=== PATIENT | female | born 1960 | race Caucasian/White ===

== ENCOUNTER 2016-09-24 18:50 | Inpatient (IN) | payer BC ==
--- NOTE | ~2016-09-24 | HP ---
Unit #: [id number] #: [id number] Patient: JAEL FLORES [id number] [address] [place], [place] [address] [id number] I MR#: [id number] NAME: JAEL FLORES. ROOM: 332 Age: 56 Sex: F Admission Date: 09/25/2016 : 1960 Attending Physician: Namrata Doss M.D. Primary Care Physician: No Primary Care Physician HISTORY AND PHYSICAL CHIEF COMPLAINT Nausea, vomiting and diarrhea. HISTORY OF PRESENT ILLNESS This is a 56-year-old female with a history of hypertension, diabetes, acid reflux, history of thrombocytopenia in 2014. She presented to the emergency room with a chief complaint of having diarrhea for the last three or four days and also she said she vomited times two. She has been very nauseous. On workup in the emergency room she was found to have a white count of 34,000, BUN 30, creatinine 2 and sodium 134. She underwent CT scan which is pending at this time. She eventually was admitted. Urine shows urinary tract infection. She denies chest pain. She denies fever. She denies headache or any other complaint. PAST MEDICAL HISTORY 1. History of hypertension. 2. Diabetes. 3. History of thrombocytopenia in 2014. 4. History of gastroesophageal reflux disease. PAST SURGICAL HISTORY She denies any surgical intervention. SOCIAL HISTORY She does not smoke. Does not drink alcohol. No illicit drug use. FAMILY HISTORY Diabetes in the family. HOME MEDICATIONS 1. Prilosec 20 mg daily. 2. Glucophage b.i.d. 3. Januvia 100 mg before breakfast. 4. Amaryl 400 mg b.i.d. 5. Lisinopril 5 mg daily. 6. Ferrous sulfate 325 mg daily. REVIEW OF SYSTEMS Negative except as per history of present illness. PHYSICAL EXAMINATION GENERAL: Middle-aged female lying in the bed comfortably. Currently not in any distress. She is alert, awake and oriented times three. VITALS: Temperature 98.2, heart rate 109, respiratory rate 16, blood Unit #: [id number] #: [id number] Patient: JAEL FLORES pressure 100/60. HEENT: Pupils equal and reactive to light and accommodation. Head is normocephalic, atraumatic. NECK: Supple. No jugular venous distension. No lymphadenopathy. No thyromegaly. LUNGS: Clear to auscultation bilaterally. No rhonchi. No wheezing. HEART: S1 and S2. Regular rate and rhythm. ABDOMEN: Soft, nondistended. Bowel sounds positive. No guarding. No rigidity. EXTREMITIES: Inspection normal. No cyanosis, clubbing or edema. NEUROLOGIC: No focal neurologic deficits. Cranial nerves II through XII grossly intact. PSYCHIATRIC: She has normal affect, normal mood. Alert and oriented times three. SKIN: No rash. DIAGNOSTIC STUDIES IMAGING: CT scan is pending. LABORATORY: Urine shows cloudy appearance and WBCs 10-25, positive LE. White blood cell count 34,000, hemoglobin 13, hematocrit 42, platelets 283. Chemistry, sodium 134, potassium 4.1, glucose 93, BUN 30, creatinine 2. Amylase and lipase normal. LFTs within normal limits. ASSESSMENT/PLAN 1. Nausea, vomiting and diarrhea with leukocytosis. She denies any antibiotics recently. I will get stool for c-diff times two. Clear liquid diet. Start on IV Levaquin. Follow the CT scan results, which are pending at the time of dictation. 2. Urinary tract infection. Levaquin. 3. Acute kidney injury. Start on IV fluids. Hold lisinopril. Hold Metformin. 4. Leukocytosis. 5. History of hypertension. 6. Diabetes. Dictated by Kathy Eagle TD: 09/25/2016 06:49 JOB #: [id number] HISTORY AND PHYSICAL Page 1 of 1 X X HISTORY AND PHYSICAL
--- NOTE | ~2016-09-24 | CT4 ---
[facility] A Service of [facility] RADIOLOGY TEXT RESULTS PATIENT: JAEL FLORES LOCATION: [facility] 332-01 : 58 UNIT #: [id number] AGE: [address]: Namrata Doss MD SEX: F ORDER DR: [id number] [place] [id number] [facility]. [place], [place] [address] [id number] I MR#: [id number] #: [id number] NAME: JAEL FLORES. : 1960 SEX: F STUDY DATE/TIME: 09/24/2016 23:51 [facility] STUDY DESCRIPTION: CT Abd and Pelv Wo Cont Attending Physician: Namrata Doss M.D. Ordering Physician: Stephani Ferris M.D. Primary Care Physician: No Primary Care Physician MEDICAL IMAGING REPORT This report is preliminary unless electronic signature is present EXAM CT abdomen pelvis, noncontrast, 09/24/2016 HISTORY A 56-year-old female in the ED complaining of 304-day history of nausea, vomiting and diarrhea. Weakness. TECHNIQUE CT examination of the abdomen and pelvis was performed without oral or IV contrast using kidney stone protocol, as requested. This CT exam was performed with one or more of the following radiation dose reduction techniques: automatic exposure control, adjustment of mA and/or kV according to patient size, and iterative reconstruction. FINDINGS Abdomen: Both kidneys, both ureters and the urinary bladder are normal in noncontrast CT appearance. No visible nephrolithiasis or evidence of urinary obstruction. Liver, pancreas and spleen are normal in size and appearance without contrast. Nondistended gallbladder. No bile duct dilatation. Small bowel and colon are normal in caliber and appearance. The appendix is normal. Normal-caliber abdominal aorta. Pelvis: Uterus, ovaries, bladder and rectum are within normal limits. Limited images through the lower chest show a small hiatal hernia. IMPRESSION 1. No acute abnormality within the abdomen or pelvis. No visible nephrolithiasis or evidence of urinary obstruction. [facility] A Service of [facility] RADIOLOGY TEXT RESULTS PATIENT: JAEL FLORES LOCATION: [facility] 332-01 : [birth year] UNIT #: [id number] AGE: [address]: Namrata Doss MD SEX: F ORDER DR: 2. Small hiatal hernia. 3. The appendix is normal. Dictated by... Mario Choudhary M.D. THIS IS AN ELECTRONICALLY VERIFIED REPORT Mario Choudhary M.D. at 09/25/2016 9:53 PM SHELBY/ruperto TD: 09/25/2016 12:12 JOB #: [id number] MEDICAL IMAGING REPORT Page 1 of 1 COPY
--- NOTE | ~2016-09-24 | CT55 ---
[facility] A Service of [facility] & [facility] RADIOLOGY TEXT RESULTS PATIENT: JAEL FLORES LOCATION: [facility] 332-01 : [birth year] UNIT #: [id number] AGE: [address]: Namrata Doss MD SEX: F ORDER DR: [id number] [facility] [address] [facility] [place] [facility]. [place], [place] [address] [id number] I MR#: [id number] Acc #: [id number] NAME: JAEL FLORES. : 1960 SEX: F STUDY DATE/TIME: 09/26/2016 18:17 UNIT: [address] ROOM: [facility] STUDY DESCRIPTION: CT Chest W Con Attending Physician: Namrata Doss M.D. Ordering Physician: Namrata Doss M.D. Primary Care Physician: Primary Care Physician No MEDICAL IMAGING REPORT This report is preliminary unless electronic signature is present EXAM CT chest with IV contrast HISTORY Elevated white blood cell count for 4 days. Nausea. Vomiting. This CT exam was performed with one or more of the following radiation dose reduction techniques: automatic exposure control, adjustment of mA and/or kV according to patient size, and iterative reconstruction. FINDINGS IV contrast enhanced CT chest demonstrates mild patchy subsegmental nodular interstitial infiltrate in the posteromedial right lower lobe. This is similar to CT 09/24/2016. Considerations include subsegmental pneumonia. Minimal subsegmental atelectasis in the inferior lingula. Remainder lungs are clear. No pleural effusions. No adenopathy. Small hiatal hernia. Normal caliber thoracic aorta. IMPRESSION 1. Subsegmental nodular interstitial infiltrate in the posteromedial right lower lobe inferiorly is stable compared to CT abdomen 09/24/2016. Although nonspecific this could be due to subsegmental pneumonia. Chronic postinflammatory process is also a consideration. No additional infiltrates. Minimal subsegmental atelectasis in the lingula. 2. Small hiatal hernia. Dictated by... Jacoby Luciano M.D. THIS IS AN ELECTRONICALLY VERIFIED REPORT Jacoby Luciano M.D. at 09/27/2016 3:05 PM DFL/patricio STS. [facility] A Service of [facility] & [facility] RADIOLOGY TEXT RESULTS PATIENT: JAEL FLORES LOCATION: [facility] 332-01 : 58 UNIT #: [id number] AGE: [address]: Namrata Doss MD SEX: F ORDER DR: TD: 09/27/2016 07:37 JOB #: [id number] MEDICAL IMAGING REPORT Page 1 of 1 COPY
--- NOTE | ~2016-09-24 | DS ---
Unit #: [id number] #: [id number] Patient: JAEL FLORES [id number] [address] [place], [place] [address] [id number] I MR#: [id number] NAME: JAEL FLORES. ROOM: 332 Age: 56 Sex: F Admission Date: 09/25/2016 : 1960 Discharge Date: 09/28/2016 Attending Physician: Namrata Doss M.D. Primary Care Physician: No Primary Care Physician DISCHARGE SUMMARY PRINCIPAL DIAGNOSES 1. Significant leukocytosis, primarily eosinophilia, status post bone marrow biopsy with pending pathology results. 2. Sepsis secondary to viral gastroenteritis, now resolved. 3. Gastritis. 4. Acute kidney injury, prerenal, now resolved. 5. Microcytosis with normal iron levels. 6. Mild vitamin B12 deficiency with vitamin B12 total 247. 7. Diabetes mellitus type 2, noninsulin requiring, and controlled. 8. Hypertension. CONSULTANTS Dr. Sinha, oncology; Dr. Waters, gastroenterology. PROCEDURES 1. EGD on 09/27/2016 with findings of gastritis and gastric polyps, which have been biopsied. Pathology is currently pending. Duodenum was normal. 2. Bone marrow biopsy on 09/27/2016 was pending pathology. This occurred without complications. 3. CT of the abdomen and pelvis without contrast on 09/24/2016 with no acute abnormality within the abdomen and pelvis. Small hiatal hernia noted. 4. CT of the chest with contrast on 09/26/2016 with a subsegmental nodular interstitial infiltrate in the right lower lobe concerning for pneumonia versus post inflammatory process, atelectasis and lingula noted. Small hiatal hernia noted. 5. CT of the abdomen and pelvis with contrast on 09/26/2016 with no acute findings. CLINICAL HISTORY AND HOSPITAL COURSE Ms. Flores is a very nice 56-year-old female who presents to the emergency department with complaints of nausea, vomiting, diarrhea and abdominal pain. Please refer to H and P for further details. CT scan in the emergency department was unremarkable, however, patient was found to have an elevated white blood cell count of 34,000 in addition to a creatinine of 2.0. She was at that point admitted. In regards to patient's nausea and vomiting with supportive measures, this resolved spontaneously. She was empirically placed on antibiotics due to a concern on associated urinary tract infection but urine culture results were negative. Stool studies were also unremarkable with the exception of some mild fecal leukocytes. Again the supported measures for symptoms have resolved. Unit #: [id number] #: [id number] Patient: JAEL FLORES In regards to patient's acute kidney injury, again she was started on IV fluids and on the day of discharge creatinine is normal. Differential white blood cell count in the emergency department was significantly abnormal with eosinophils ranging anywhere from 32% to 52%. Given this abnormality, in conjunction with her symptoms, I asked Dr. Waters to evaluate the patient. The patient underwent EGD with findings as noted. Polyp pathology is currently pending. I also asked hematology to evaluate the patient given this abnormality. She underwent CT scan of chest abdomen and pelvis that is unremarkable. She underwent bone marrow biopsy, which is currently pending. However, she has been placed on prednisone therapy beginning yesterday and on the day of discharge blood cell count is now down to 15.9 which is as low as this has been. Plan is for patient to followup with Dr. Sinha very soon in the office, initiate further treatment pending bone marrow results. Patient's other home conditions are otherwise stable and at baseline, can be discharged home today. DISCHARGE CONDITION Stable. DISCHARGE STATUS Discharge to home. DISCHARGE MEDICATIONS 1. Prednisone 20 mg tablets, 3 tablets daily with one month given. 2. Metformin 800 mg b.i.d. 3. Januvia 100 mg daily. 4. Lisinopril 5 mg daily. 5. Ferrous sulfate 325 mg every other day. 6. Prilosec 20 mg daily. 7. Amaryl 4 mg p.o. b.i.d. 8. Vitamin B12 1,000 mcg p.o. daily. DISCHARGE INSTRUCTIONS Patient was instructed to follow from a heart healthy constant carb diet. She can increase her activity as tolerated. FOLLOWUP 1. Patient of Dr. Sinha's, will followup with Dr. Sinha within the next four to seven days and will initiate treatment if indicated based upon bone marrow results. 2. She will followup with her primary care provider, Dr. Suad Murillo in approximately two weeks. Time spent on discharge 34 minutes. Dictated by... Namrata Doss M.D. [facility]/lauren Unit #: [id number] #: [id number] Patient: JAEL FLORES TD: 09/29/2016 11:29 JOB #: [id number] DISCHARGE SUMMARY Page 1 of 1 X Namrata Doss MD X DISCHARGE SUMMARY
--- NOTE | ~2016-09-24 | CO ---
Unit #: [id number] #: [id number] Patient: JAEL FLORES [id number] [address] [place], [place] [address] [id number] I MR#: [id number] NAME: JAEL FLORES. ROOM: 332 Age: 56 Sex: F Admission Date: 09/25/2016 : 1960 Attending Physician: Namrata Doss M.D. Consultation Date: 09/27/2016 CONSULTATION REPORT REASON FOR CONSULTATION Nausea, vomiting, diarrhea, and abdominal pain. HISTORY OF PRESENT ILLNESS Ms. Flores is a 56-year-old white female. The patient was well until about a week ago when she developed profuse watery nonbloody diarrhea up to 10 to 15 times a day. Since then, her diarrhea has gotten better, but she says stool coloration is now checked black. It is noteworthy she is taking oral iron therapy. In addition, she also has history of rather diffuse upper abdominal pain along with nausea. The pain is also lessened and the patient vomited only once. The nausea is also overall better. During her evaluation, she has been found to have marked eosinophilia. The nausea and upper abdominal pain are present, although much better. There is no history of skin rash or fever. PAST MEDICAL HISTORY Significant for history of ITP, she sees Dr. Kishor Williamson for the latter. She also has history of hypertension, diabetes, and gastroesophageal reflux. The patient has had no prior abdominal surgeries. SOCIAL HISTORY Does not smoke or drink alcohol. 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 FAMILY HISTORY Diabetes in the family. MEDICATIONS At home included Amaryl, Januvia, Glucophage, Prilosec, lisinopril, and ferrous sulfate. ALLERGIES She has no known drug allergies. REVIEW OF SYSTEMS Detailed review of organ systems does not reveal any recent weight loss. No history of fever, chills, or rigors. No history of headache, seizures, chest pain, or syncope. No history of cough, expectoration, or hemoptysis. No history of dysuria, hematuria, or pyuria. No history of focal seizures or extremity weakness. Rest of the review of organ systems is unremarkable. PHYSICAL EXAMINATION GENERAL: She is alert and oriented, appears comfortable. VITAL SIGNS: Stable with a temperature of 98.4, pulse 92 per minute and Unit #: [id number] #: [id number] Patient: JAEL FLORES regular, respiratory rate is 16, blood pressure 146/82. She weighs 207 pounds. Baseline weight is about 212 pounds in the past. HEENT: She has no pallor, icterus, lymphadenopathy, or peripheral edema. CARDIOVASCULAR: Reveal normal heart sounds. No murmurs. LUNGS: Auscultation over the lungs reveal normal breath sounds. Good air entry. ABDOMEN: Soft, obese, and nontender. Liver and spleen are not palpable. Bowel sounds normal. DIAGNOSTIC STUDIES LABORATORY RESULTS: Shows a white count of 34,000, 36% of these are eosinophils. C diff toxin in the stool is negative. IMAGING STUDIES: CT scan of the abdomen and pelvis also negative. CLINICAL IMPRESSION The most likely etiology here is infectious enteritis, melena may be factitious due to the fact the patient's iron therapy. In any event, a diagnostic upper endoscopy is indicated due to abdominal pain and nausea. The patient also requires a screening colonoscopy at a much later date as an outpatient. She is also due to have a bone marrow aspiration done because of eosinophilia, which is already ordered by her mainframe systems programmer. Thank you very much for asking me to see this pleasant woman. I appreciate the consult. Dictated by... Kathy Majano/rebecca TD: 09/28/2016 05:32 JOB #: [id number] Kishor Williamson M.D. CONSULTATION REPORT Page 1 of 1 X Wilmer Wtaers MD X CONSULTATION REPORT
--- NOTE | ~2016-09-24 | CO ---
Unit #: [id number] #: [id number] Patient: JAEL FLORES [id number] [address] [place], [place] [address] [id number] I MR#: [id number] NAME: JAEL FLORES. ROOM: 332 Age: 56 Sex: F Admission Date: 09/25/2016 : 1960 Attending Physician: Namrata Doss M.D. Primary Care Physician: No Primary Care Physician CONSULTATION REPORT HISTORY OF PRESENT ILLNESS Ms. Flores is a very pleasant 56 year old with a diagnosis of hypertension, diabetes, acid reflux, a history of ITP treated in 2014 apparently with Rituxan, steroids and IV IG. She came in with complaints of a few days history of abdominal pain and started out with diarrhea, then developed crockett stools followed by black tarry stools. She became nauseous. She came to the emergency room and was found to have an elevated white count. In the emergency room, she had a white count of 34,000, hemoglobin of 13.8, hematocrit 42.7. MCV was low at 79. RDW was 14.6, platelet count of 283. Her differential showed 57% neutrophils, 6.8% lymphocytes, 2.3% monocytes, 32.8% eosinophils and basophils are 0.3%. Total neutrophil count of 19,700. Total eosinophil count of 11,200. She had chemistry panel showing a creatinine of 0.6. Electrolytes were okay. She had an iron sat of 23%. B12 that was borderline low at 247. It is going to be replaced. She was referred to me for evaluation. PAST MEDICAL HISTORY 1. ITP in the past. It has been treated and has been in remission for a couple of years. 2. She has hypertension. 3. Diabetes. 4. GERD. SOCIAL HISTORY No alcohol. No tobacco. No drug use. She works currently and was at work in a factory. FAMILY HISTORY Her father of colon cancer. No other history of blood disorder or cancer in first degree relatives. MEDICATIONS 1. Prilosec. 2. Glucophage. 3. Januvia. 4. Amaryl. 5. Lisinopril. 6. Ferrous sulfate. REVIEW OF SYSTEMS Positive for nausea, vomiting. Positive for melena per rectum. Positive for feeling weak and tired. Negative for fever, chills, sweats. Negative for joint complaints today. Unit #: [id number] #: [id number] Patient: JAEL FLORES PHYSICAL EXAMINATION GENERAL APPEARANCE: A very pleasant lady. VITAL SIGNS: Temperature 98.2. Heart rate 109. Respirations 16. Blood pressure 100/60. HEENT: Eyes showed no scleral icterus. Pupils are equal. Mouth moist. Hearing is intact. NECK: Normal JVD. Trachea in the midline. LUNGS: Clear. Symmetrical chest expansion. HEART: Regular rhythm. ABDOMEN: Soft with no masses. No cervical or supraclavicular retinopathy. SKIN: No rashes, ulcers or nodules. NEUROLOGIC: She is awake, alert, oriented to person, place and time with normal memory, judgment, affect and insight. Neurologically, she is afocal, actually is resting comfortably today. The remainder of the 12-point physical exam is benign. ASSESSMENT A very pleasant lady with elevated eosinophil count. Wide differential for this. Given that this is preceded with GI distress, we are going to go ahead and get stool for OCP. We are also going to go ahead and get a JAK2 mutation analysis. We will get a PCR for BCR-ABL. We will go ahead and get a bone marrow on her for cytogenetics and a FISH for myelodysplasia. Get CT of the chest, abdomen and pelvis to make sure she does not have a lymphoproliferative disorder or a lymphoma that is driving this. I have seen a case or two of Hodgkin's disease present with hypereosinophilism and it is worth at least taking a look. If all that is clear, the CTs and once the bone marrow done, we will go ahead and start some prednisone 60 mg orally a day to start after she gets her bone marrow and CTs done. Also, I will go ahead and replace her B12 and we will screen her for HIV since she is is lymphopenic and get a hepatitis panel as well as get an SHABBIR and a rheumatoid factor. Dictated by... Michael Helm M.D. ASTRID/zheng TD: 09/27/2016 06:41 JOB #: [id number] CONSULTATION REPORT Page 1 of 1 X X CONSULTATION REPORT
--- NOTE | ~2016-09-24 | CT134 ---
[facility] A Service of [facility] & [facility] RADIOLOGY TEXT RESULTS PATIENT: JAEL FLORES LOCATION: [facility] 332-01 : 58 UNIT #: [id number] AGE: [address]: Namrata Doss MD SEX: F ORDER DR: [id number] [facility] [address] [facility]. [place], [place] [address] [id number] I MR#: [id number] Acc #: [id number] NAME: JAEL FLORES. : 1960 SEX: F STUDY DATE/TIME: 09/27/2016 11:35 UNIT: A [facility] ROOM: [facility] STUDY DESCRIPTION: CT Guide Attending Physician: Namrata Doss M.D. Ordering Physician: Kishor Williamson M.D. Primary Care Physician: No Primary Care Physician MEDICAL IMAGING REPORT This report is preliminary unless electronic signature is present EXAM CT-guided bone marrow biopsy INDICATIONS Leukocytosis. PROCEDURE The risks, benefits, and alternatives to the procedure were explained to the patient and signed, informed consent was obtained. She was placed prone on the CT scanner gantry and preliminary CT scan was performed through the region of interest. An appropriate site overlying the left iliac bone was selected, the overlying skin was marked, the patient was prepped and draped in the usual sterile fashion. Time-out was performed as per protocol. Skin and subcutaneous tissues were anesthetized with buffered lidocaine. Bone marrow biopsy needle was advanced into the left iliac bone. Repeat CT scan confirmed appropriate trajectory of the needle and the needle was subsequently advanced into the bone marrow and a bone marrow aspirate was obtained. Needle was advanced further into the bone marrow and then removed, which yielded and adequate core sample. Manual pressure was applied until hemostasis was obtained. Patient did receive moderate conscious sedation consisting of 3-1/2 mg of Versed 150 mcg of fentanyl. I supervised the IVR nurse and monitored the patient's vital signs for a total of 15 minutes of face to face time. IMPRESSION Technically successful CT guided bone marrow biopsy as noted above. CT was used during the procedure and permanent images were saved. Dictated by... Pilar Ballesteros M.D. [facility]. [facility] A Service of [facility] & [facility] RADIOLOGY TEXT RESULTS PATIENT: JAEL FLORES LOCATION: [facility] 332-01 : 58 UNIT #: [id number] AGE: [address]: Namrata Doss MD SEX: F ORDER DR: THIS IS AN ELECTRONICALLY VERIFIED REPORT Pilar Ballesteros M.D. at 10/04/2016 4:49 PM GINO/tayler TD: 10/04/2016 15:10 JOB #: [id number] MEDICAL IMAGING REPORT Page 1 of 1 COPY
--- NOTE | ~2016-09-24 | CT2 ---
[facility] A Service of [facility] RADIOLOGY TEXT RESULTS PATIENT: JAEL FLORES LOCATION: [facility] : 58 UNIT #: [id number] AGE: [address]: Namrata Doss MD SEX: F ORDER DR: [id number] [facility] [place] [address] [place], [place] [address] [id number] I MR#: [id number] #: [id number] NAME: JAEL FLORES. : 1960 SEX: F STUDY DATE/TIME: 09/26/2016 18:17 UNIT: [id number] ROOM: [facility] STUDY DESCRIPTION: CT Abd and Pelv W Cont Attending Physician: Namrata Doss M.D. Ordering Physician: Namrata Doss M.D. Primary Care Physician: Primary Care Physician No MEDICAL IMAGING REPORT This report is preliminary unless electronic signature is present EXAM CT abdomen and pelvis with IV contrast HISTORY Abdomen pain, nausea, vomiting for [address] exam was performed with one or more of the following radiation dose reduction techniques: automatic exposure control, adjustment of mA and/or kV according to patient size, and iterative reconstruction. FINDINGS CT abdomen and pelvis was performed with IV contrast. CT Abdomen: Small hiatal hernia. No hepatic mass or biliary ductal dilatation. The spleen, pancreas, kidneys, and adrenal glands are normal. No bowel dilatation. No inflammatory stranding or ascites. Normal caliber abdominal aorta. CT pelvis: No pelvic mass or fluid collection. Normal appendix. The uterus and adnexa are unremarkable. The urinary bladder is normal. IMPRESSION 1. No acute findings in the abdomen or pelvis. 2. No urinary obstruction or bowel obstruction. No free fluid or inflammatory changes. Dictated by... Jacoby Luciano M.D. [facility] A Service [facility] RADIOLOGY TEXT RESULTS PATIENT: JAEL FLORES LOCATION: [facility] 332 : 58 UNIT #: [id number] AGE: [address]: Namrata Doss MD SEX: F ORDER DR: THIS IS AN ELECTRONICALLY VERIFIED REPORT Jacoby Gail Luciano M.D. at 09/27/2016 3:05 PM CRISTHIAN/daria TD: 09/27/2016 07:57 JOB #: [id number] MEDICAL IMAGING REPORT Page 1 of 1 COPY
--- NOTE | ~2016-09-24 | OR ---
Unit #: [id number] #: [id number] Patient: JAEL FLORES [id number] [place], [place] [address] [id number] I MR#: [id number] NAME: JAEL FLORES. ROOM: [facility] Date of Procedure: 08/28/2016 Admission Date: 09/25/2016 Surgeon: Wilmer Waters M.D. : 1960 Attending Physician: Namrata Doss M.D. OPERATIVE REPORT PREOPERATIVE DIAGNOSES The patient presented with history of diarrhea subsequently became black and tarry. It is not clear whether this is melena or simply dark coloration of the stools due to iron the patient has been taking. In addition, she has been found to have profound eosinophilia on a blood test. She did have significant nausea and diarrhea, both of which have considerably resolved and most likely as a result of self-limited gastroenteritis. PROCEDURES PERFORMED Upper gastrointestinal endoscopy and biopsy. POSTOPERATIVE DIAGNOSES 1. Mild prepyloric antral gastritis. 2. Multiple sessile polyps in the gastric fundus suggestive of hyperplastic polyps. Sampling of the largest of these polyps was taken by biopsying it. 3. Rest of the examination up to third part of duodenum was normal. Biopsies obtained from the deep descending duodenal folds to look for any evidence of partial villous atrophy or celiac disease. RECOMMENDATIONS The patient can be discharged home from GI standpoint. She is due to have a bone marrow aspirate later today and can be started on regular diet thereafter. She will require an outpatient colonoscopy in the next few weeks. SEDATION USED MAC. DESCRIPTION OF PROCEDURE Following detailed explanation of potential risks and complications of an upper endoscopy, namely perforation, bleeding, and complications related to sedation, the patient was brought to GI lab and laid in the left lateral decubitus position. Lubricated tip of the Olympus video upper endoscope was passed through the bite block into the proximal esophagus under direct vision. Entire esophageal mucosa was examined and appeared normal. Z-line was nicely demarcated, there being no esophagitis or hiatus hernia. The scope was then advanced into the gastric cavity and the latter was insufflated. Mucosa of the fundus, body, and antrum was examined. The patient was noted to have mild prepyloric antral erythema indicating antral gastritis. In addition, multiple polyps were noted in Unit #: [id number] #: [id number] Patient: JAEL FLORES the gastric fundus suggestive of hyperplastic gastric polyps. Pylorus was intubated with visualization of the normal duodenal bulb and second and third part of the duodenum. Upon withdrawal and retroflexion, incisura, cardia, and greater curve examined and no additional findings noted. A biopsy obtained from the antrum for CLOtest. In addition, one of the gastric polyps were removed using cold biopsy forceps. We also obtained biopsies from the deep descending duodenal folds to look for any evidence of partial villous atrophy or celiac disease. The scope was then withdrawn in the distal esophagus. The entire esophageal mucosa was examined all the way up to pharynx. No additional findings noted. The patient tolerated the procedure without any postprocedure complications. Dictated by... Kathy Majano TD: 09/28/2016 00:58 JOB #: [id number] CC: Kishor Williamson M.D. OPERATIVE REPORT Page 1 of 1 X Wilmer Waters MD X PROCEDURE OPERATIVE NOTE
[~2016-09-24 18:50] MED LIST: AMARYL PO; BAYER CHEWABLE81 MG PO; GLUCOPHAGE850 MG PO; IBUPROFEN PO; LEVAQUIN PO; NOVOLOG100 U/ML; ONGLYZA5 MG PO; PREDNISONE10 MG PO; PRILOSEC PO; PRILOSEC40 MG PO; PRINIVIL5 MG PO
[2016-09-24 20:50] LABS: BASOPHIL# 0.1 X10e3 (0-0.3); BASOPHIL% 0.3 % (0-2.5); EOSINOPHIL# 11.2 X10e3 (0-0.7); EOSINOPHIL% 32.8 % (0.0-7.0); HEMATOCRIT 42.7 % (35.0-45.0); HEMOGLOBIN 13.8 gm/dL (12.0-16.0); LYMPHOCYTE# 2.3 X10e3 (1.0-3.5); LYMPHOCYTE% 6.8 % (17.0-45.0); MEAN CORPUSCULAR HEMOGLOBIN 25.4 PG (28-34); MEAN CORPUSCULAR HGB CONC 32.2 g/dL (30-36); MEAN PLATELET VOLUME 8.7 FL (6.5-11.5); MONOCYTE# 0.8 X10e3 (0-1.0); MONOCYTE% 2.3 % (3.0-12.0); NEUTROPHIL# 19.7 X10e3 (1.5-7.1); NEUTROPHIL% 57.8 % (40-75); PLATELET COUNT 283 X10e3 (140-420); RED BLOOD COUNT 5.41 X10e (3.90-5.30); RED CELL DISTRIBUTION WIDTH 14.6 % (11.0-15.5)
[2016-09-24 20:53] LABS: DIFF IND YES
[2016-09-24 21:06] LABS: ALBUMIN SERUM 3.6 g/dL (3.5-5.0); BILIRUBIN, DIRECT 0.1 mg/dL (0.0-0.2); BILIRUBIN,INDIRECT 0.3 mg/dL (0.0-0.9); BILIRUBIN,TOTAL 0.4 mg/dL (0.2-2.0); CALCIUM SERUM 8.7 mg/dL (8.4-10.2); POTASSIUM 4.5 mmol/L (3.5-5.1); PROTEIN TOTAL SERUM 7.3 g/dL (6.0-8.3)
[2016-09-24 21:07] LABS: PLATELET ESTIMATE NORMAL (NORMAL); RBC NORMAL YES
[2016-09-24 22:27] LABS: URINE SOURCE CLEAN CATCH
[2016-09-24 22:34] LABS: URINE APPEARANCE CLOUDY; URINE BLOOD NEG (NEG); URINE COLOR DK YELLOW; URINE GLUCOSE NEG (NEG); URINE KETONE 1+ (NEG); URINE LEUKOCYTE ESTERASE 1+ (NEG); URINE NITRATE NEG (NEG); URINE PROTEIN 2+ (NEG); URINE SPECIFIC GRAVITY 1.031 (1.003-1.035)
[2016-09-24 22:37] LABS: CULTURE INDICATED? YES; URINE BACTERIA AUWI NEG (NEGATIVE); URINE SQUAMOUS EPITHELIAL CELL FEW /[HPF]
[2016-09-24 22:45] LABS: URINE BILIRUBIN NEG (NEG)
[2016-09-24 22:54] LABS: URBCS1 AUWI 0-2 /[HPF] (0-2); URINE WAXY CAST 0-2 /[HPF]
[2016-09-25] MEDS ORDERED: AMARYL PO (00:04)
[2016-09-25] MEDS ORDERED: GLUCOPHAGE850 MG PO (00:04)
[2016-09-25] MEDS ORDERED: JANUVIA PO (00:04)
[2016-09-25] MEDS ORDERED: FERRO-TIME325 MG PO (00:05)
[2016-09-25] MEDS ORDERED: LISINOPRIL5 MG PO (00:05)
[2016-09-25] MEDS ORDERED: PRILOSEC PO (00:05)
[2016-09-25 09:32] LABS: BASOPHIL# 0.1 X10e3 (0-0.3); BASOPHIL% 0.3 % (0-2.5); EOSINOPHIL# 11.5 X10e3 (0-0.7); EOSINOPHIL% 44.5 % (0.0-7.0); HEMATOCRIT 41.3 % (35.0-45.0); HEMOGLOBIN 13.2 gm/dL (12.0-16.0); LYMPHOCYTE# 1.7 X10e3 (1.0-3.5); LYMPHOCYTE% 6.6 % (17.0-45.0); MEAN CELL VOLUME 79.9 FL (83-96); MEAN CORPUSCULAR HEMOGLOBIN 25.6 PG (28-34); MEAN PLATELET VOLUME 8.9 FL (6.5-11.5); MONOCYTE# 0.8 X10e3 (0-1.0); MONOCYTE% 2.9 % (3.0-12.0); NEUTROPHIL# 11.8 X10e3 (1.5-7.1); NEUTROPHIL% 45.7 % (40-75); PLATELET COUNT 246 X10e3 (140-420); RED BLOOD COUNT 5.17 X10e (3.90-5.30); RED CELL DISTRIBUTION WIDTH 14.6 % (11.0-15.5); WHITE BLOOD COUNT 25.8 X10e3 (4.0-10.5)
[2016-09-25 09:34] LABS: DIFF IND NO
[2016-09-26 06:43] LABS: BASOPHIL% 0.2 % (0-2.5); EOSINOPHIL# 10.4 X10e3 (0-0.7); HEMATOCRIT 41.2 % (35.0-45.0); HEMOGLOBIN 13.1 gm/dL (12.0-16.0); LYMPHOCYTE# 1.8 X10e3 (1.0-3.5); LYMPHOCYTE% 8.9 % (17.0-45.0); MEAN CELL VOLUME 79.9 FL (83-96); MEAN CORPUSCULAR HEMOGLOBIN 25.5 PG (28-34); MEAN CORPUSCULAR HGB CONC 31.9 g/dL (30-36); MEAN PLATELET VOLUME 8.6 FL (6.5-11.5); MONOCYTE# 0.6 X10e3 (0-1.0); MONOCYTE% 3.1 % (3.0-12.0); NEUTROPHIL# 7.2 X10e3 (1.5-7.1); NEUTROPHIL% 35.8 % (40-75); PLATELET COUNT 213 X10e3 (140-420); RED BLOOD COUNT 5.15 X10e (3.90-5.30); RED CELL DISTRIBUTION WIDTH 14.2 % (11.0-15.5)
[2016-09-26 06:44] LABS: DIFF IND NO
[2016-09-26 07:01] LABS: BUN/CREATININE RATIO 21.66; CALCIUM SERUM 8.9 mg/dL (8.4-10.2); CREATININE SERUM 0.6 mg/dL (0.6-1.4); GLOM FILT RATE Estimated 101.2 mL/min (>60); POTASSIUM 4.7 mmol/L (3.5-5.1)
[2016-09-27 06:03] LABS: BASOPHIL# 0.2 X10e3 (0-0.3); BASOPHIL% 0.6 % (0-2.5); EOSINOPHIL# 11.4 X10e3 (0-0.7); EOSINOPHIL% 46.9 % (0.0-7.0); HEMATOCRIT 40.9 % (35.0-45.0); HEMOGLOBIN 13.3 gm/dL (12.0-16.0); LYMPHOCYTE# 2.5 X10e3 (1.0-3.5); LYMPHOCYTE% 10.2 % (17.0-45.0); MEAN CELL VOLUME 79.4 FL (83-96); MEAN CORPUSCULAR HEMOGLOBIN 25.7 PG (28-34); MEAN CORPUSCULAR HGB CONC 32.4 g/dL (30-36); MEAN PLATELET VOLUME 8.4 FL (6.5-11.5); MONOCYTE# 0.9 X10e3 (0-1.0); MONOCYTE% 3.6 % (3.0-12.0); NEUTROPHIL# 9.4 X10e3 (1.5-7.1); NEUTROPHIL% 38.7 % (40-75); PLATELET COUNT 209 X10e3 (140-420); RED BLOOD COUNT 5.16 X10e (3.90-5.30); RED CELL DISTRIBUTION WIDTH 14.6 % (11.0-15.5); WHITE BLOOD COUNT 24.4 X10e3 (4.0-10.5)
[2016-09-27 06:04] LABS: DIFF IND NO
[2016-09-27 06:44] LABS: ALBUMIN SERUM 3.3 g/dL (3.5-5.0); BILIRUBIN,TOTAL 0.9 mg/dL (0.2-2.0); CALCIUM SERUM 8.8 mg/dL (8.4-10.2); CREATININE SERUM 0.8 mg/dL (0.6-1.4); GLOM FILT RATE Estimated 81.9 mL/min (>60); PROTEIN TOTAL SERUM 6.5 g/dL (6.0-8.3)
[2016-09-27 08:17] LABS: PARTIAL THROMBOPLASTIN TIME 25.8 SECONDS (23.5-31.3); PROTHROMBIN TIME (PATIENT) 10.9 SECONDS (9.6-11.5)
[2016-09-28 05:46] LABS: HEMATOCRIT 43.4 % (35.0-45.0); HEMOGLOBIN 14.1 gm/dL (12.0-16.0); MEAN CELL VOLUME 78.8 FL (83-96); MEAN CORPUSCULAR HEMOGLOBIN 25.6 PG (28-34); MEAN CORPUSCULAR HGB CONC 32.5 g/dL (30-36); MEAN PLATELET VOLUME 8.7 FL (6.5-11.5); RED BLOOD COUNT 5.52 X10e (3.90-5.30); RED CELL DISTRIBUTION WIDTH 14.4 % (11.0-15.5); WHITE BLOOD COUNT 15.9 X10e3 (4.0-10.5)
[2016-09-28] MEDS ORDERED: FERROUS SULFAT324 MG PO (14:19)
[2016-09-28] MEDS ORDERED: DELTASONE20 MG PO (14:22)
[2016-09-28] MEDS ORDERED: B-121000 MC1 PO (14:23)
[2016-09-29 07:16] LABS: HA AB IGM (HEPPAN) Nonreactive (()); HB CORE AB IGM (HEPPAN) Nonreactive (Nonreactive); HB S AG (HEPPAN) Nonreactive (Nonreactive); HEP C AB (HEPPAN) Nonreactive (Nonreactive); HEP C AB SIGNAL TO CUTOFF 0.01 ratio (<1.00)
== END 2016-09-28 15:42 | disposition home or self-care (01) | DRG 872 ==
LOC: CED 18:50 → C3A PCU 09-25 00:10 → CEDOF 09-25 00:10 → CED 09-25 00:52 → CEDOF 09-25 03:35 → C3A PCU 09-25 03:35 → CEDOF 09-25 05:30 → C3A PCU 09-25 05:30
PROVIDERS: Emergency Medicine; Internal Medicine; Internal Medicine Gastroenterology; Internal Medicine Medical Oncology
PROC: 07DR3ZX Extraction of Iliac Bone Marrow, Percutaneous Approach, Diagnostic (ICD-10-PCS; 2016-09-25)
PROC: 0DB68ZX Excision of Stomach, Via Natural or Artificial Opening Endoscopic, Diagnostic (ICD-10-PCS; principal; 2016-09-27 08:04)
PROC: 0DB98ZX Excision of Duodenum, Via Natural or Artificial Opening Endoscopic, Diagnostic (ICD-10-PCS; 2016-09-27 08:04)
DX: A41.9 Sepsis, unspecified organism (principal); N17.9 Acute kidney failure, unspecified; D72.1 Eosinophilia; A09 Infectious gastroenteritis and colitis, unspecified; I10 Essential (primary) hypertension; E11.9 Type 2 diabetes mellitus without complications; Z79.84 Long term (current) use of oral hypoglycemic drugs; K21.9 Gastro-esophageal reflux disease without esophagitis; K29.50 Unspecified chronic gastritis without bleeding; K31.7 Polyp of stomach and duodenum; E53.8 Deficiency of other specified B group vitamins
CPT/HCPCS: 36415; 71260; 74176; 74177; 77012; 80048; 80053; 80074; 80076; 81003; 81206; 81207; 81270; 82607; 82947; 83540; 83550; 83630; 83690; 85025; 85027; 85610; 85730; 87077; 87086; 87177; 87209; 87493; 87806; 88305; 88311; 88312; 88313; 96361; 96374; 99144; 99153; 99285; C9113; J1815; J1956; J2250; J2405; J3010; J3420; Q9967